=== PATIENT | female | born 1940 | race Caucasian/White ===

== ENCOUNTER 2018-02-17 12:25 | Inpatient (IN) | payer MEDICARE ==
[~2018-02-17] VITALS: Ht 167.6 cm; Wt 24.3 kg
--- NOTE | ~2018-02-17 | CN ---
PATIENT NAME:CHETAN HUANG MEDICAL RECORD: [id number] : 42 LOCATION:[facility] ADMIT DATE: 02/17/18 ACCOUNT: [id number] CONSULTING PHYSICIAN: SLOAN LAL MD REFERRING PHYSICIAN: DONNELL HART MD DATE OF CONSULTATION: 02/22/2018 DIAGNOSES: 1. Hypotension. 2. Renal failure. 3. Anemia. 4. Pelvic mass. HISTORY OF PRESENT ILLNESS: Ms. Huang presents with hypotension. She has multiple medical problems including renal insufficiency, acute on chronic anemia, as well as a pelvic mass. She does have a cardiac history of a pacemaker; hypertension, with carvedilol; sick sinus syndrome; paroxysmal atrial fibrillation, with amiodarone; hyperlipidemia, with pravastatin. She has pleural effusion as well as ascites; however, echo shows a normal ejection fraction of 60%. No significant valvular heart disease. PHYSICAL EXAMINATION: GENERAL APPEARANCE: Well-nourished, well-developed, appears stated age. Level of distress, comfortable. PSYCHIATRIC: Mental status, alert, normal affect. Orientation, oriented to time, place and person. EYES: Lids and conjunctiva, noninjected. No discharge, no pallor. ENT: Lips, teeth, gums, normal dentition. Oropharynx, no cyanosis, no pallor. NECK: Carotid arteries, bilateral normal upstroke, no bruits, no thrills. JUGULAR VEINS: No jugular venous pressure or distention. CERVICAL LYMPH NODES: Nontender, nonenlarged. THYROID: Not enlarged. Nontender. No nodules. LUNGS: Respiratory effort, unlabored. CHEST: Normal curvature. No thoracic deformity. No chest wall tenderness. Percussion, resonant. Auscultation, clear. No wheezes, no rales, no rhonchi. CARDIOVASCULAR: Precordial exam, nondisplaced. No heaves or pericardial thrills. Rate and rhythm, regular. Heart sounds, normal S1, normal S2. No S3, no gallop, no rub. Systolic murmur, not heard. Diastolic murmur, not heard. EXTREMITIES: No cyanosis, no edema. Peripheral pulses, full and equal in all extremities, except as noted. No bruits appreciated. ABDOMEN: Soft, nondistended. Normal aorta. No bruit. Nontender. No masses. Liver, nontender, no hepatomegaly. Spleen, nontender, no splenomegaly. MUSCULOSKELETAL: No joint tenderness. No joint swelling. No erythema. NEUROLOGICAL: Normal gait, normal strength, normal tone. SKIN: Warm and dry. REVIEW OF SYSTEMS: The patient reports easy bruising but reports no swollen glands. The patient reports no fever, no night sweats, no significant weight gain, no significant weight loss. No significant exercise tolerance. The patient reports no dry eyes, no irritation, no vision change. Patient reports no difficulty hearing and no ear pain. Patient reports no frequent nose bleeds or nose and sinus problems. Patient reports on arm pain on exertion. No shortness of breath while lying down. No history of heart murmur. Patient reports no cough, no wheezing or coughing up blood. Patient reports no abdominal pain, no vomiting. Normal appetite. No diarrhea and not vomiting CONSULT REPORT [id number] KOENDERS,CHETAN blood. No nausea and no constipation. Patient reports no incontinence. No difficulty urinating. No hematuria. No increased frequency. Patient reports no muscle aches. No weakness, no arthralgias, no back pain. No swelling of the extremities. Patient reports no abnormal mole, no jaundice, no rashes. Reports no loss of consciousness. No weakness and no numbness. No seizures, dizziness, or headaches. The patient reports no depression, no sleep disturbance, feeling safe in a relationship and no alcohol abuse. Patient reports on fatigue. Reports no runny nose or sinus pressure. No itching, no hives, and no frequent sneezing. OVERALL IMPRESSION: Her hypotension is not cardiac in etiology. She has no ST-T changes, no ischemia. Her echocardiogram is normal. No other cardiac workup or treatment is necessary. TRANSINT:[id number] Voice Confirmation ID: [id number] DOCUMENT ID: [id number] SLOAN LAL MD at 1056 CC: [id number] DICTATION DATE: 02/22/18 1406 INTERNET TECHNOLOGY MANAGER: 02/22/18 1437 DIS IN 02/24/18 [place] [id number]
--- NOTE | ~2018-02-17 | EC ---
PATIENT:CHETAN BILLY DATE OF SERVICE: 02/17/18 SEX: F MEDICAL RECORD: [id number] DATE OF : 42 LOCATION:[facility] D.[id number] AGE OF PATIENT: 77 ADMISSION DATE: 02/17/18 REFERRING PHYSICIAN: INTERPRETING PHYSICIAN: SLOAN HERNÁNDEZ MD ECHOCARDIOGRAM REPORT ECHO CHARGES 4 ECHO COMPLETE Date: CLINICAL DIAGNOSIS: HYPOTENSION/ARRHYTHMIA ECHOCARDIOGRAPHIC MEASUREMENTS (adult normal given) AC root (d.<3.7cm) 2.8 cm LV Septum d (<1.2 cm> 1.4 cm Valve Excursion 1.7 cm LV Septum (systole) 1.7 cm Left Atria (s.<4.0cm> 5.0 cm LVPW d(<1.2cm) 1.4 cm RV (d.<2.3cm) 3.5 cm LVPW (sytole) 1.9 cm LV diastole(<5.6CM) 5.0 cm MV E-F(>70mm/sec) cm LV systole 3.2 cm LVOT Diameter 1.5 cm MV exc.(>10mm) cm Est.ejection fraction (50-75%) % DOPPLER: LVIT cm/sec A cm/sec E cm/sec LA cm/sec RVSP mmHg LVOT cm/sec AOP1/2T m/s Asc. Ao cm/sec RVOT cm/sec RA cm/sec PA cm/sec AV Gradient Peak mmHg AV Mean mmHg AV Area cm MV Gradient Peak 6.36 mmHg MV Mean 1.95 mmHg MV Area cm COMMENTS: Flame Hardening Machine Setter: Noam LANZA Corporate Trainer: 1 Dr. Hernández TAPE# PACS Pericardial Effusion N DATE OF SERVICE: PROCEDURE: Echocardiogram. FINDINGS: 1. Left ventricle chamber size is within normal limits. Left ventricular systolic function is normal. Overall ejection fraction estimated at 55% to 60%. 2. Left atrium is enlarged at 5.0 cm. Right atrium and right ventricular chamber sizes are as well mildly dilated. 3. Valvular structures have normal structure and motion. ECHOCARDIOGRAM REPORT [id number] CHETAN BILLY 4. Doppler interrogation reveals mild aortic insufficiency, mild mitral regurgitation, mild tricuspid regurgitation, no other valvular insufficiency or stenosis. Pulmonary systolic pressure is estimated at 40 mmHg. 5. No evidence of pericardial effusion or left ventricular thrombus. TRANSINT:[id number] Voice Confirmation ID: [id number] DOCUMENT ID: [id number] SLOAN HERNÁNDEZ MD at 1056 CC: [id number] DICTATION DATE: 02/22/18 1402 LINING PRESSER: 02/22/18 1416 DIS IN 02/24/18 [place] [id number] [place] [id number]
[2018-02-17 14:05] VITALS: BP 122/53; BMI 21.0
[2018-02-17 14:12] LABS: BASOPHILS 0 % (0-2); EOSINOPHILS 0.2 % (0-7); HEMATOCRIT 36.6 % (36.0-48.0); HEMOGLOBIN 11.8 g/dL (12-16); IMMATURE GRANULOCYTES 0.2 % (0-5); LYMPHOCYTES 13.8 % (15-50); MCH 29.2 pg (26.0-34.0); MCHC 32.2 g/dL (31.0-37.0); MCV 90.6 fL (80.0-100.0); MEAN PLATELET VOLUME 9.7 fL (7.4-10.4); MONOCYTES 2.8 % (2-11); PLATELET COUNT 103 10x3/uL (130-400); RBC 4.04 10x6/uL (4.00-5.40); RDW 20.3 % (11.5-14.5)
[2018-02-17 14:20] LABS: INR 1.57 (0.85-1.17); PROTIME 18.3 SECONDS (11.6-15.0)
[2018-02-17 14:48] LABS: ALBUMIN 2.3 g/dL (3.4-5.0); ANION GAP 15.4 mmol/L (8-16); BILIRUBIN - TOTAL 1.55 mg/dL (0.2-1.3); CALCIUM 7.3 mg/dL (8.5-10.1); CARBON DIOXIDE 24.8 mmol/L (21.0-32.0); POTASSIUM - SERUM 3.2 mmol/L (3.5-5.1); PROTEIN - SERUM 6.1 g/dL (6.4-8.2)
[2018-02-17 15:29] VITALS: BP 132/60
[2018-02-17 20:00] VITALS: BP 112/53
[2018-02-18 04:00] VITALS: BP 136/56
[2018-02-18 06:01] LABS: BASOPHILS 0 % (0-2); EOSINOPHILS 0.1 % (0-7); HEMATOCRIT 36.7 % (36.0-48.0); IMMATURE GRANULOCYTES 0.1 % (0-5); LYMPHOCYTES 15.1 % (15-50); MCH 29.3 pg (26.0-34.0); MCHC 32.7 g/dL (31.0-37.0); MCV 89.5 fL (80.0-100.0); MEAN PLATELET VOLUME 10.6 fL (7.4-10.4); MONOCYTES 3.3 % (2-11); NEUTROPHILS 81.4 % (40-80); RDW 20.5 % (11.5-14.5); WBC 7.2 10x3/uL (4.8-10.8)
[2018-02-18 06:02] LABS: PLATELET COUNT 140 10x3/uL (130-400)
[2018-02-18 06:15] LABS: % SATURATION 75 % (15-55); IRON 81 ug/dl (35-150); TOTAL IRON BIND CAPACITY 108 ug/dl (260-445)
[2018-02-18 06:16] LABS: UNSAT IRON BIND CAPACITY 27 ug/dl (150-375)
[2018-02-18 06:38] LABS: ALBUMIN 2.4 g/dL (3.4-5.0); ANION GAP 17.3 mmol/L (8-16); BILIRUBIN - TOTAL 1.4 mg/dL (0.2-1.3); CALCIUM 7.6 mg/dL (8.5-10.1); CARBON DIOXIDE 22.7 mmol/L (21.0-32.0); CREATININE - SERUM 1.1 mg/dL (0.6-1.3); MAGNESIUM - SERUM 1.5 mg/dL (1.8-2.4); PHOSPHOROUS 3.4 mg/dL (2.5-4.9); PROTEIN - SERUM 6.3 g/dL (6.4-8.2)
[2018-02-18 06:42] LABS: THYROID STIMULATING HORMONE 77.12 uIU/mL (0.36-3.74)
[2018-02-18 08:39] VITALS: BP 128/45
[2018-02-18 12:05] VITALS: BP 119/52
[2018-02-18 16:45] VITALS: BP 110/47
[2018-02-18 20:49] VITALS: BP 109/45
[2018-02-19 04:00] VITALS: BP 117/72
[2018-02-19 05:29] LABS: INR 1.4 (0.85-1.17); PROTIME 16.7 SECONDS (11.6-15.0)
[2018-02-19 05:30] LABS: BASOPHILS 0 % (0-2); EOSINOPHILS 0.4 % (0-7); HEMATOCRIT 36.3 % (36.0-48.0); HEMOGLOBIN 11.9 g/dL (12-16); IMMATURE GRANULOCYTES 0.2 % (0-5); LYMPHOCYTES 16.6 % (15-50); MCHC 32.8 g/dL (31.0-37.0); MCV 88.5 fL (80.0-100.0); MEAN PLATELET VOLUME 8.9 fL (7.4-10.4); MONOCYTES 3.7 % (2-11); NEUTROPHILS 79.1 % (40-80); RDW 20.5 % (11.5-14.5)
[2018-02-19 05:33] LABS: PLATELET COUNT 96 10x3/uL (130-400); WBC 4.6 10x3/uL (4.8-10.8)
[2018-02-19 06:00] LABS: ALBUMIN 2.2 g/dL (3.4-5.0); ANION GAP 14.8 mmol/L (8-16); BILIRUBIN - TOTAL 1.32 mg/dL (0.2-1.3); CALCIUM 7.6 mg/dL (8.5-10.1); CARBON DIOXIDE 24.6 mmol/L (21.0-32.0); CREATININE - SERUM 1.2 mg/dL (0.6-1.3); MAGNESIUM - SERUM 1.5 mg/dL (1.8-2.4); POTASSIUM - SERUM 3.4 mmol/L (3.5-5.1); PROTEIN - SERUM 6.2 g/dL (6.4-8.2)
[2018-02-19 10:17] LABS: ANA REFLEX - DIRECT Negative (Negative); HEPATITIS C ANTIBODY <0.1 (0.0-0.9)
[2018-02-19 12:55] VITALS: BP 115/50
[2018-02-19 13:15] LABS: CA125 63.9 U/mL (0.0-38.1)
[2018-02-19 15:23] LABS: ALPHA FETOPROTEIN -(TUMOR MRK) 10.3 ng/mL (0.0-8.3)
[2018-02-19 16:27] VITALS: BP 100/37
[2018-02-19 22:06] VITALS: BP 111/64
[2018-02-20] VITALS (13 sets, daily range): BP systolic 110–144; BP diastolic 44–74
[2018-02-20 06:29] LABS: BASOPHILS 0 % (0-2); EOSINOPHILS 0.2 % (0-7); HEMOGLOBIN 11.2 g/dL (12-16); IMMATURE GRANULOCYTES 0.4 % (0-5); LYMPHOCYTES 20.4 % (15-50); MCH 29.3 pg (26.0-34.0); MCHC 32.9 g/dL (31.0-37.0); MEAN PLATELET VOLUME 10.7 fL (7.4-10.4); MONOCYTES 4.1 % (2-11); NEUTROPHILS 74.9 % (40-80); PLATELET COUNT 92 10x3/uL (130-400); RBC 3.82 10x6/uL (4.00-5.40); RDW 20.7 % (11.5-14.5); WBC 5.4 10x3/uL (4.8-10.8)
[2018-02-20 06:48] LABS: ALBUMIN 2.3 g/dL (3.4-5.0); ANION GAP 14.9 mmol/L (8-16); BILIRUBIN - TOTAL 1.49 mg/dL (0.2-1.3); CALCIUM 8.1 mg/dL (8.5-10.1); CARBON DIOXIDE 25.1 mmol/L (21.0-32.0); CREATININE - SERUM 1.2 mg/dL (0.6-1.3); MAGNESIUM - SERUM 1.6 mg/dL (1.8-2.4); PROTEIN - SERUM 6.2 g/dL (6.4-8.2)
[2018-02-20 06:54] LABS: INR 1.43 (0.85-1.17)
[2018-02-20 07:35] LABS: PHOSPHOROUS 1.1 mg/dL (2.5-4.9)
[2018-02-20 07:39] LABS: PLATELET ESTIMATE DECREASED
[2018-02-20 15:24] LABS: MITOCHONDRIAL ANTIBODY 107.6 Units (0.0-20.0); SMOOTH MUSCLE ABS (ACTIN) 14 Units (0-19)
[2018-02-21 00:52] VITALS: BP 164/84
[2018-02-21 04:36] LABS: BASOPHILS 0 % (0-2); EOSINOPHILS 0 % (0-7); HEMATOCRIT 31.8 % (36.0-48.0); HEMOGLOBIN 10.4 g/dL (12-16); IMMATURE GRANULOCYTES 0.8 % (0-5); MCH 29.5 pg (26.0-34.0); MCHC 32.7 g/dL (31.0-37.0); MCV 90.1 fL (80.0-100.0); MEAN PLATELET VOLUME 10.2 fL (7.4-10.4); MONOCYTES 4.7 % (2-11); NEUTROPHILS 89.5 % (40-80); RBC 3.53 10x6/uL (4.00-5.40); RDW 20.9 % (11.5-14.5)
[2018-02-21 04:40] LABS: PLATELET COUNT 117 10x3/uL (130-400); WBC 8.3 10x3/uL (4.8-10.8)
[2018-02-21 04:50] LABS: ALBUMIN 2.3 g/dL (3.4-5.0); ANION GAP 18.5 mmol/L (8-16); BILIRUBIN - TOTAL 1.69 mg/dL (0.2-1.3); CALCIUM 8.1 mg/dL (8.5-10.1); CARBON DIOXIDE 24.9 mmol/L (21.0-32.0); CREATININE - SERUM 1.4 mg/dL (0.6-1.3); POTASSIUM - SERUM 4.4 mmol/L (3.5-5.1); PROTEIN - SERUM 6.2 g/dL (6.4-8.2)
[2018-02-21 08:29] VITALS: BP 136/79
[2018-02-21 12:51] VITALS: BP 128/80
[2018-02-21 15:33] VITALS: BMI 20.9
[2018-02-21 15:51] VITALS: BP 118/74
[2018-02-21 20:38] VITALS: BP 84/36
[2018-02-22] VITALS (51 sets, daily range): BP systolic 52–117; BP diastolic 36–79; Ht 167.6 cm; Wt 24.3 kg
[2018-02-22 04:49] LABS: BASOPHILS 0.1 % (0-2); EOSINOPHILS 0 % (0-7); HEMATOCRIT 28.7 % (36.0-48.0); HEMOGLOBIN 9.4 g/dL (12-16); IMMATURE GRANULOCYTES 5.2 % (0-5); LYMPHOCYTES 4.1 % (15-50); MCH 29.7 pg (26.0-34.0); MCHC 32.8 g/dL (31.0-37.0); MCV 90.5 fL (80.0-100.0); MEAN PLATELET VOLUME 10.5 fL (7.4-10.4); MONOCYTES 1.7 % (2-11); NEUTROPHILS 88.9 % (40-80); RBC 3.17 10x6/uL (4.00-5.40); RDW 21.6 % (11.5-14.5); WBC 10.2 10x3/uL (4.8-10.8)
[2018-02-22 04:57] LABS: PLATELET COUNT 81 10x3/uL (130-400)
[2018-02-22 05:32] LABS: BILIRUBIN - TOTAL 2.8 mg/dL (0.2-1.3); CALCIUM 8.1 mg/dL (8.5-10.1); POTASSIUM - SERUM 4.7 mmol/L (3.5-5.1); PROTEIN - SERUM 5.8 g/dL (6.4-8.2)
[2018-02-22 05:33] LABS: ANION GAP 27.6 mmol/L (8-16); CARBON DIOXIDE 17.1 mmol/L (21.0-32.0); CREATININE - SERUM 2.9 mg/dL (0.6-1.3)
[2018-02-22 09:20] LABS: APTT 88.5 SECONDS (22.8-39.4)
[2018-02-22 09:22] LABS: INR 2.42 (0.85-1.17); PROTIME 25.7 SECONDS (11.6-15.0)
[2018-02-22 10:06] LABS: HEMATOCRIT 27.7 % (36.0-48.0); HEMOGLOBIN 8.9 g/dL (12-16)
[2018-02-22] MEDS ORDERED: PREDNISONE5 MG (10:58)
[2018-02-22] MEDS ORDERED: PREDNISONE5 MG PO (11:25)
[2018-02-22] MEDS ORDERED: PRAVACHOL40 MG PO (11:26)
[2018-02-22] MEDS ORDERED: COREG25 MG PO (11:26)
[2018-02-22] MEDS ORDERED: BRILINTA90 MG PO (11:26)
[2018-02-22] MEDS ORDERED: LISINOPRIL10 MG PO (11:26)
[2018-02-22] MEDS ORDERED: LANOXIN125 MCG PO (11:26)
[2018-02-22] MEDS ORDERED: CORDARONE200 MG PO (11:27)
[2018-02-22] MEDS ORDERED: ZYLOPRIM300 MG PO (11:28)
[2018-02-22 14:03] LABS: HEMATOCRIT 27.1 % (36.0-48.0); HEMOGLOBIN 8.7 g/dL (12-16)
[2018-02-22 14:40] LABS: CKMB 9.7 U/L (0.0-3.6)
[2018-02-22 14:41] LABS: CREATINE KINASE 1143 UL (21-215)
[2018-02-22 14:43] LABS: TROPONIN-I 0.076 ng/mL (0.000-0.060)
[2018-02-22 22:20] LABS: HEMATOCRIT 31.6 % (36.0-48.0); HEMOGLOBIN 10.1 g/dL (12-16)
[2018-02-23] VITALS (95 sets, daily range): BP systolic 58–114; BP diastolic 23–70
[2018-02-23 03:24] LABS: BASOPHILS 0.1 % (0-2); EOSINOPHILS 0.5 % (0-7); HEMATOCRIT 32.6 % (36.0-48.0); HEMOGLOBIN 10.3 g/dL (12-16); LYMPHOCYTES 1.4 % (15-50); MCH 29.6 pg (26.0-34.0); MCHC 31.6 g/dL (31.0-37.0); MONOCYTES 1.1 % (2-11); NEUTROPHILS 95.9 % (40-80); RBC 3.48 10x6/uL (4.00-5.40); RDW 21.9 % (11.5-14.5)
[2018-02-23 03:25] LABS: MCV 93.7 fL (80.0-100.0); PLATELET COUNT 58 10x3/uL (130-400); WBC 16.8 10x3/uL (4.8-10.8)
[2018-02-23 03:28] LABS: INR 2.63 (0.85-1.17); PROTIME 27.4 SECONDS (11.6-15.0)
[2018-02-23 03:42] LABS: ANION GAP 23.5 mmol/L (8-16); BILIRUBIN - TOTAL 3.31 mg/dL (0.2-1.3); CARBON DIOXIDE 18.8 mmol/L (21.0-32.0); CREATININE - SERUM 3.4 mg/dL (0.6-1.3); MAGNESIUM - SERUM 1.6 mg/dL (1.8-2.4); POTASSIUM - SERUM 4.3 mmol/L (3.5-5.1); PROTEIN - SERUM 5.3 g/dL (6.4-8.2)
[2018-02-23 03:44] LABS: CALCIUM 6.8 mg/dL (8.5-10.1)
[2018-02-23 09:27] LABS: HEMATOCRIT 33.4 % (36.0-48.0); HEMOGLOBIN 10.7 g/dL (12-16)
[2018-02-23 15:25] LABS: HEMATOCRIT 33.6 % (36.0-48.0); HEMOGLOBIN 10.7 g/dL (12-16)
[2018-02-24] VITALS: BP 57/32
[2018-02-24 00:15] VITALS: BP 53/39
== END 2018-02-24 05:28 | DRG 441 ==
LOC: D.MS 12:25 → D.ICU 13:11
PROVIDERS: Family Medicine Adult Medicine; Internal Medicine Gastroenterology; Internal Medicine Nephrology; Internal Medicine Pulmonary Disease; Radiology Diagnostic Radiology
PROC: 0FB13ZX Excision of Right Lobe Liver, Percutaneous Approach, Diagnostic (ICD-10-PCS; principal; 2018-02-20 10:30)
PROC: 05HC33Z Insertion of Infusion Device into Left Basilic Vein, Percutaneous Approach (ICD-10-PCS; 2018-02-22)
PROC: B54NZZA Ultrasonography of Left Upper Extremity Veins, Guidance (ICD-10-PCS; 2018-02-22)
DX: K71.7 Toxic liver disease with fibrosis and cirrhosis of liver (principal); J96.01 Acute respiratory failure with hypoxia; N17.0 Acute kidney failure with tubular necrosis; G93.40 Encephalopathy, unspecified; A41.9 Sepsis, unspecified organism; R18.8 Other ascites; J90 Pleural effusion, not elsewhere classified; I42.9 Cardiomyopathy, unspecified; E87.0 Hyperosmolality and hypernatremia; R10.9 Unspecified abdominal pain; T46.2X5A Adverse effect of other antidysrhythmic drugs, initial encounter; I50.9 Heart failure, unspecified; I25.10 Atherosclerotic heart disease of native coronary artery without angina pectoris; Z95.810 Presence of automatic (implantable) cardiac defibrillator; E87.6 Hypokalemia; E83.42 Hypomagnesemia; E03.9 Hypothyroidism, unspecified; E86.0 Dehydration; E16.2 Hypoglycemia, unspecified; I11.0 Hypertensive heart disease with heart failure